=== PATIENT | male | born 1950 | race Caucasian/White ===

== ENCOUNTER → 2016-08-02 | Outpatient (REF) ==
[~2016-08-02] MED LIST: COZAAR100 MG PO; VALIUM 5MG T5 MG/TAB PO
[2016-08-02 16:03] LABS: THYROID STIMULATING HORMONE 0.43 uIU/mL (0.465-4.680)
[2016-08-02 16:11] LABS: PSA-TOTAL 3.65 ng/mL (0-4)
== END ==
LOC: ZLAB.WCH 15:15
PROVIDERS: Internal Medicine
DX: Z01.89 Encounter for other specified special examinations (principal)
CPT/HCPCS: G0103

== ENCOUNTER → 2017-08-27 | Outpatient (REF) ==
[2017-08-27 18:47] LABS: PSA-TOTAL 4.73 ng/mL (0-4)
[2017-08-27 18:54] LABS: THYROID STIMULATING HORMONE 0.739 uIU/mL (0.465-4.680)
== END ==
LOC: ZLAB.WCH 18:00
PROVIDERS: Internal Medicine
DX: Z12.5 Encounter for screening for malignant neoplasm of prostate (principal)
CPT/HCPCS: G0103

== ENCOUNTER → 2018-08-22 | Outpatient (REF) ==
[2018-08-22 16:59] LABS: THYROID STIMULATING HORMONE 0.798 uIU/mL (0.465-4.680)
[2018-08-22 17:51] LABS: PSA-TOTAL 4.2 ng/mL (0-4)
== END ==
LOC: ZLAB.WCH 15:58
PROVIDERS: Internal Medicine
DX: Z01.89 Encounter for other specified special examinations (principal)
CPT/HCPCS: G0103

== ENCOUNTER 2018-09-17 13:10 | Outpatient (CLI) | payer MEDICARE, BC ==
[~2018-09-17] VITALS: Ht 167.6 cm; Wt 83.6 kg
[~2018-09-17 13:10] MED LIST changes: +MULTI VITAMINS1 TAB PO
[2018-09-17 13:20] VITALS: BP 164/83; PULSE 74
[2018-09-17 13:55] VITALS: BP 133/85; PULSE 62
[2018-09-17 14:00] VITALS: BP 124/84; PULSE 91; TEMP 98
--- NOTE | 2018-09-17 14:00 | NUR ---
Allyn ACOSTA transported pt and gave report. VSS. Pt denies pain at this time
[2018-09-17 14:15] VITALS: BP 121/74; PULSE 82
[2018-09-17 14:30] VITALS: BP 138/82; PULSE 70
[2018-09-17 15:00] VITALS: BP 133/82; PULSE 63
--- NOTE | 2018-09-17 15:00 | NUR ---
Discharge instructions given. Transferred to private car by juanjo
== END 2018-09-17 15:10 | disposition home or self-care (01) ==
LOC: COL.RAD 13:10
DX: M50.11 Cervical disc disorder with radiculopathy, high cervical region (principal); M48.02 Spinal stenosis, cervical region; Z98.1 Arthrodesis status
CPT/HCPCS: Q9967

== ENCOUNTER → 2019-04-01 | Outpatient (CLI) | payer MEDICARE, BC | LOC: COL.RAD 13:41 | DX: M25.551 Pain in right hip (principal) | CPT/HCPCS: J3301; Q9967 ==

== ENCOUNTER → 2019-06-09 | Outpatient (CLI) | payer MEDICARE, BC | LOC: COL.RAD 09:45 | DX: N28.1 Cyst of kidney, acquired (principal); R94.4 Abnormal results of kidney function studies ==

== ENCOUNTER → 2024-03-25 | Outpatient (CLI) | payer MEDICARE, BC ==
[~2024-03-25] MED LIST changes: +NORCO 325 MG-51 TAB PO; +PREDNISONE50 MG PO
== END ==
LOC: COL.RAD 12:10
DX: I08.0 Rheumatic disorders of both mitral and aortic valves (principal); M47.26 Other spondylosis with radiculopathy, lumbar region; M41.86 Other forms of scoliosis, lumbar region; M48.061 Spinal stenosis, lumbar region without neurogenic claudication; M51.16 Intervertebral disc disorders with radiculopathy, lumbar region

== ENCOUNTER 2024-03-28 13:45 | Emergency (ER) | payer MEDICARE, BC ==
[~2024-03-28] VITALS: Ht 167.6 cm; Wt 77.3 kg
[~2024-03-28 13:45] MED LIST changes: -NORCO 325 MG-51 TAB PO; -PREDNISONE50 MG PO
[2024-03-28 13:48] VITALS: TEMP 98.3
[2024-03-28] MEDS ORDERED: dexAMETHasone 10 MG/ML VIAL PO ONE (14:15)
[2024-03-28] MEDS ORDERED: Lidocaine 4% Topical Patch TP ONE (14:15)
[2024-03-28] MEDS ORDERED: Ketorolac 15 MG/ML VIAL IM ONE (14:15)
[2024-03-28] MEDS ORDERED: PREDNISONE50 MG PO (15:13)
[2024-03-28] MEDS ORDERED: NORCO 325 MG-51 TAB PO (15:13)
[2024-03-28 15:20] VITALS: BP 135/78; PULSE 86
== END 2024-03-28 15:20 | disposition home or self-care (01) ==
LOC: COL.ER 13:45
DX: M54.42 Lumbago with sciatica, left side (principal)
CPT/HCPCS: J1100; J1885; J2360